=== PATIENT | female | born 1965 | race Caucasian/White ===

== ENCOUNTER 2019-02-10 19:24 | Emergency (ER) | payer OTHER ==
[2019-02-10] MEDS ORDERED: DERMABOND SKIN ADHESIVE TOP ONE (20:30)
[2019-02-10] MEDS ORDERED: HYDROCODONE/APAP 5/325 MG TAB ONE (20:31)
--- NOTE | 2019-02-10 20:39 | RAD REPORT ---
EXAM DESCRIPTION: RAD - Wrist Left 3 View - 02/10/2019 8:31 pm CLINICAL HISTORY: PAIN Pain COMPARISON: No comparisons FINDINGS: No fracture or dislocation seen. No foreign body or other soft tissue abnormality. IMPRESSION: Negative examination.
--- NOTE | 2019-02-10 20:40 | RAD REPORT ---
EXAM DESCRIPTION: RAD - Hand Left 3 View - 02/10/2019 8:31 pm CLINICAL HISTORY: PAIN COMPARISON: <Comparisons> FINDINGS: No acute fracture or dislocation seen.
--- NOTE | 2019-02-10 22:08 | ER ---
Nurse's Notes [facility] Name: Rachel Smith Age: 53 yrs Sex: Female : 1965 Arrival Date: 02/10/2019 Time: 19:27 Bed 28 Private MD: Diagnosis: Laceration without foreign body of other part of head;Fracture of unspecified phalanx of left little finger;Unspecified sprain of left wrist Presentation: 02/10 19:41 Presenting complaint: Patient states: Tripped over a brick and his side of head on lp1 concrete; abrasion to left eyebrow, pain to left wrist, left pinky finger; No LOC. Care prior to arrival: None. Mechanism of Injury: Fall from standing position. 19:41 Acuity: CRISTIAN 4 lp1 19:41 Method Of Arrival: Ambulatory lp1 19:44 Transition of care: patient was not received from another setting of care. Onset of lp1 symptoms was February 10, 2019. Risk Assessment: Do you want to hurt yourself or someone else? Patient reports no desire to harm self or others. Initial Sepsis Screen: Does the patient meet any 2 criteria? No. Patient's initial sepsis screen is negative. Does the patient have a suspected source of infection? No. Patient's initial sepsis screen is negative. 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 - Social history:: Smoking status: Patient/guardian denies using tobacco. - Ebola Screening: : No symptoms or risks identified at this time. Screenin:15 Abuse screen: Denies threats or abuse. Nutritional screening: No deficits noted. ea Tuberculosis screening: No symptoms or risk factors identified. Fall Risk Fall in past 12 months (25 points). Assessment: 20:15 General: Appears uncomfortable, Behavior is calm, cooperative, appropriate for age. ea Pain: Complains of pain in left supraorbital ridge. Neuro: Level of Consciousness is awake, alert, obeys commands, Oriented to person, place, time, situation. Cardiovascular: Patient's skin is warm and dry. Respiratory: Airway is patent Respiratory effort is even, unlabored, Respiratory pattern is regular, symmetrical. Derm: Skin is pink, warm \T\ dry. 21:13 Reassessment: Patient and/or family updated on plan of care and expected duration. Pain ea level reassessed. Patient is alert, oriented x 3, equal unlabored respirations, skin warm/dry/pink. Pt reports her headache has decreased. Vital Signs: 19:42 BP 148 / 71; Pulse 63; Resp 18; Temp 98.2(O); Pulse Ox 99% on R/A; Weight 77.11 kg (R); lp1 Height 5 ft. 5 in. (165.10 cm); Pain 8/10; 20:30 BP 130 / 73; Pulse 59; Resp 18; Pulse Ox 98% ; ea 21:21 BP 121 / 66; Pulse 58; Resp 18; Pulse Ox 98% ; ea 22:22 BP 122 / 62; Pulse 60; Resp 18; Temp 98.5; Pulse Ox 100% on R/A; Pain 2/10; mg2 19:42 Body Mass Index 28.29 (77.11 kg, 165.10 cm) lp1 ED Course: 19:27 Patient arrived in ED. es 19:42 Triage completed. lp1 19:43 Arm band placed on right wrist. lp1 19:44 Eugenio Sharpe MD is Attending Physician. gs 20:01 Nataliya Melendez, RN is Primary Nurse. ea 20:20 Patient has correct armband on for positive identification. Bed in low position. Call ea light in reach. Side rails up X2. 20:28 Hand Left 3 View XRAY In Process Unspecified. EDMS 20:28 Wrist Left (3 View) XRAY In Process Unspecified. EDMS 20:43 CT Head C Spine In Process Unspecified. EDMS 21:59 Assist provider with laceration repair on left supraorbital ridge that was 2.5 cm. or mg2 less using Dermabond. Set up tray. Performed by Eugenio Sharpe MD Dressed with steri-strips Patient tolerated well. Patient did not have IV access during this emergency room visit. Velcro wrist splint applied to left wrist. 22:05 Michael Rojo MD is Referral Physician. Administered Medications: 20:17 Drug: [place] 5 mg-325 mg 1 tabs Route: PO; ea 21:14 Follow up: Response: No adverse reaction; Pain is decreased ea Outcome: 22:07 Discharge ordered by . gs 22:23 Discharged to home ambulatory, with family. mg2 22:23 Condition: stable 22:23 Discharge instructions given to patient, family, Instructed on discharge instructions, follow up and referral plans. medication usage, Demonstrated understanding of instructions, follow-up care, medications, wound care, Prescriptions given X 1. 22:23 Patient left the ED. mg2 Signatures: Dispatcher [employer] EDLaura Pacheco Laura RN RN lp1 Nataliya Melendez RN RN Eugenio Redding MD MD gs [place], Michele RN RN mg2
--- NOTE | 2019-02-10 22:09 | EDPHYS ---
Physician Documentation [facility] Name: Rachel Smith Age: 53 yrs Sex: Female : 1965 Arrival Date: 02/10/2019 Time: 19:27 Bed 28 Private MD: ED Physician Eugenio Sharpe HPI: 02/10 22:00 This 53 yrs old Female presents to ER via Ambulatory with complaints of Fall gs Injury. 22:00 Details of fall: The patient fell from an upright position. Onset: The symptoms/episode gs began/occurred just prior to arrival. Associated injuries: The patient sustained injury to the head, laceration, 2 cm(s), of the outer aspect of left eyebrow, palmar aspect of left wrist. Severity of symptoms: At their worst the symptoms were moderate, in the emergency department the symptoms are unchanged. The patient has experienced a previous episode. The patient has not recently seen a physician. 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 - Social history:: Smoking status: Patient/guardian denies using tobacco. - Ebola Screening: : No symptoms or risks identified at this time. ROS: 22:00 All other systems are negative. gs Exam: 22:00 Eyes: Pupils equal round and reactive to light, extra-ocular motions intact. Lids and gs lashes normal. Conjunctiva and sclera are non-icteric and not injected. Cornea within normal limits. Periorbital areas with no swelling, redness, or edema. ENT: Nares patent. No nasal discharge, no septal abnormalities noted. Tympanic membranes are normal and external auditory canals are clear. Oropharynx with no redness, swelling, or masses, exudates, or evidence of obstruction, uvula midline. Mucous membranes moist. Neck: Trachea midline, no thyromegaly or masses palpated, and no cervical lymphadenopathy. Supple, full range of motion without nuchal rigidity, or vertebral point tenderness. No Meningismus. Chest/axilla: Normal chest wall appearance and motion. Nontender with no deformity. No lesions are appreciated. Cardiovascular: Regular rate and rhythm with a normal S1 and S2. No gallops, murmurs, or rubs. Normal PMI, no JVD. No pulse deficits. Respiratory: Lungs have equal breath sounds bilaterally, clear to auscultation and percussion. No rales, rhonchi or wheezes noted. No increased work of breathing, no retractions or nasal flaring. Abdomen/GI: Soft, non-tender, with normal bowel sounds. No distension or tympany. No guarding or rebound. No evidence of tenderness throughout. Back: No spinal tenderness. No costovertebral tenderness. Full range of motion. Skin: Warm, dry with normal turgor. Normal color with no rashes, no lesions, and no evidence of cellulitis. Neuro: Awake and alert, GCS 15, oriented to person, place, time, and situation. Cranial nerves II-XII grossly intact. Motor strength 5/5 in all extremities. Sensory grossly intact. Cerebellar exam normal. Normal gait. 22:00 Constitutional: The patient appears alert, awake. 22:00 Head/face: Noted is a laceration(s), that is superficial, of the outer aspect of left eyebrow. 22:00 Musculoskeletal/extremity: Extremities: noted in the dorsal aspect of distal phalanx of left little finger and dorsal aspect of middle phalanx of left little finger: swelling, tenderness, ROM: no acute changes, Circulation is intact in all extremities. Joints: the left wrist displays tenderness. Vital Signs: 19:42 BP 148 / 71; Pulse 63; Resp 18; Temp 98.2(O); Pulse Ox 99% on R/A; Weight 77.11 kg (R); lp1 Height 5 ft. 5 in. (165.10 cm); Pain 8/10; 20:30 BP 130 / 73; Pulse 59; Resp 18; Pulse Ox 98% ; ea 21:21 BP 121 / 66; Pulse 58; Resp 18; Pulse Ox 98% ; ea 22:22 BP 122 / 62; Pulse 60; Resp 18; Temp 98.5; Pulse Ox 100% on R/A; Pain 2/10; mg2 19:42 Body Mass Index 28.29 (77.11 kg, 165.10 cm) lp1 Laceration: 22:00 Wound Repair of 2cm ( 0.8in ) subcutaneous laceration to outer aspect of left eyebrow. gs Distal neuro/vascular/tendon intact. Wound prep: Simple cleansing. Skin closed with 1-0 Adhesive skin closure using Dermabond. Patient tolerated well. MDM: 20:10 Patient medically screened. gs 22:00 Differential diagnosis: closed head injury, fracture, laceration. Data reviewed: vital gs signs, nurses notes. Counseling: I had a detailed discussion with the patient and/or guardian regarding: the historical points, exam findings, and any diagnostic results supporting the discharge/admit diagnosis. Response to treatment: the patient's symptoms have markedly improved after treatment. 02/10 20:10 Order name: CT Head C Spine [facility] 02/10 20:10 Order name: Hand Left 3 View XRAY; Complete Time: 22:10 kdr 02/10 20:10 Order name: Wrist Left (3 View) XRAY; Complete Time: 22:10 kdr 02/10 20:10 Order name: Dermabond; Complete Time: 20:17 kdr Administered Medications: 20:17 Drug: [place] 5 mg-325 mg 1 tabs Route: PO; ea 21:14 Follow up: Response: No adverse reaction; Pain is decreased ea Disposition: 02/10/19 22:07 Discharged to Home. Impression: Laceration without foreign body of other part of head, Fracture of unspecified phalanx of left little finger, Unspecified sprain of left wrist. - Condition is Stable. - Discharge Instructions: Finger Fracture, [id number], Laceration Care, Adult, [id number], Wrist Pain, [id number]. - Prescriptions for Tylenol- Codeine #4 300-60 mg Oral Tablet - take 1 tablet by ORAL route every 6 hours As needed; 10 tablet. - Medication Reconciliation Form, Thank You Letter, Antibiotic Education, Prescription Opioid Use form. - Follow up: Michael Rojo MD; When: 2 - 3 days; Reason: Re-evaluation by your physician. Signatures: Dispatcher [employer] EDMS Jae Pena MD MD kdr Yessi Hernandez RN RN lp1 Nataliya Melendez RN RN ea Starr, Gregory, MD MD Jakob Bravo RN RN mg2 Corrections: (The following items were deleted from the chart) :23 22:07 02/10/2019 22:07 Discharged to Home. Impression: Laceration without foreign body mg2 of other part of head; Fracture of unspecified phalanx of left little finger; Unspecified sprain of left wrist. Condition is Stable. Forms are Medication Reconciliation Form, Thank You Letter, Antibiotic Education, Prescription Opioid Use. Follow up: Michael Rojo; When: 2 - 3 days; Reason: Re-evaluation by your physician. gs
[2019-02-10 22:56] VITALS: BP 122/62; TEMP 98.5; O2SAT 100
--- NOTE | 2019-02-11 10:02 | RAD REPORT ---
EXAM DESCRIPTION: Head C Spine Mpr Wo Con, CT scan brain, CT scan cervical spine. CLINICAL HISTORY: 53 years Female Pain;Deformity COMPARISON: None TECHNIQUE: Images were obtained in axial, sagittal, and coronal planes. This exam was performed according to our departmental dose-optimization program which includes use of Automated Exposure Control, adjustment of the mA and/or kV according to patient size and/or use of i terative reconstruction technique. FINDINGS: CT brain: Ventricular system appears normal. No abnormal areas of increased or decreased a ttenuation are seen involving the brain parenchyma. No extra-axial fluid collections noted. No evidence for skull fracture. Symmetric aeration mastoid air cells bilaterally. Unremarkable parana suze sinuses. CT cervical spine: Height of the vertebral bodies is intact. Satisfactory alignment articular facets. Reversal normal cervical lordosis. Mild anterior osteophyte formation C4-5 and C5-6 levels. Marginal spur formation with neural foraminal narrowing bilaterally present. Intact odontoid and predental sp andrew. Prevertebral soft tissues appear normal. Intact ring C1. Intact occipital condyles. Posterior el ements intact all levels. No abnormality lung apices bilaterally. No focal disc protrusion. No signif icant narrowing of spinal canal any level. IMPRESSION: No acute intracranial abnormality. No evidence for hemorrhage, mass lesion, or large acu te infarction. No acute fracture or subluxation seen. Findings indicating muscle spasm cervical spine. Mild osteoart hritic change. Electronically signed by: Heather Garg MD 02/10/2019 9:15 PM CDT Due to temporary technical issues with the PACS/Fluency reporting system, reports are being signed by the in house radiologist as a courtesy to ensure prompt reporting. The interpreting radiologist is f ully responsible for the content of the report.
== END 2019-02-10 22:23 | disposition home or self-care (01) ==
LOC: ER 19:24
PROC: 0JQ10ZZ Repair Face Subcutaneous Tissue and Fascia, Open Approach (ICD-10-PCS; principal; 2019-02-10)
DX: S01.112A Laceration without foreign body of left eyelid and periocular area, initial encounter (principal); S62.607A Fracture of unspecified phalanx of left little finger, initial encounter for closed fracture; S63.502A Unspecified sprain of left wrist, initial encounter; W19.XXXA Unspecified fall, initial encounter; Y93.89 Activity, other specified; Y92.9 Unspecified place or not applicable; E03.9 Hypothyroidism, unspecified
CPT/HCPCS: 70450; 72125; 99284